=== PATIENT | male | born 1960 | race Caucasian/White ===

== ENCOUNTER 2019-07-01 19:56 | Emergency (ER) | payer OTHER ==
[2019-07-01 20:43] LABS: ABS Eosinophils 0.2 10^3/ul (0-0.6); ABS Lymphocytes 2.5 10^3/ul (1.0-4.8); ABS Monocytes 0.4 10^3/ul (0-0.8); ABS Neutrophils 2.7 10^3/ul (1.5-7.7); Hematocrit 44 % (42-52); Hemoglobin 15.3 g/dL (14.0-18.0); Lymphocyte % 43.1 %; Mean Corpuscular HGB Conc 35 g/dL (31-36); Mean Corpuscular Hemoglobin 29 pg (27-31); Mean Corpuscular Volume 84 fL (80-94); Mean Platelet Volume 8.6 fL (7.4-10.4); Platelet Count 188 10^3/uL (150-450); Red Blood Count 5.26 10^6 /uL (4.18-5.48); Red Cell Distribution Width 13 % (10-15); White Blood Count 5.7 10^3/uL (3.5-10.8)
[2019-07-01 20:48] LABS: INR 1.03 (0.82-1.09)
--- NOTE | 2019-07-01 20:55 | ED ---
HPI Chest Pain - HPI Summary HPI Summary: Pt is a 59 y/o M presenting to the ED for a chief complaint of chest pain that began 2-3 weeks ago. Pt contacted his PCP who told him to go to the ED. Pt rates the pain as 2/10 in severity and describes the pain as left-sided and aching. Pt denies nausea, SOB, diaphoresis, lightheadedness, or bilateral LE edema. Pt denies any aggravating or alleviated symptoms. Pt played tennis one day ago without aggravating the chest pain. Pt reports that he has an active lifestyle. Pt denies a PMHx of a heart murmur. Pt stopped smoking tobacco and drinking alcohol over 20 years ago. - History of Current Complaint Chief Complaint: EDChestPainROMI Time Seen by Provider: 07/01/19 20:16 Hx Obtained From: Patient Onset/Duration: Started Weeks Ago - 2-3 weeks ago, Atraumatic, Still Present Timing: Lasting Weeks - 2-3 weeks ago Initial Severity: Mild Current Severity: Mild Pain Intensity: 2 Pain Scale Used: 0-10 Numeric Chest Pain Location: Left Anterior Character: Other: - Aching Aggravating Factor(s): Nothing Alleviating Factor(s): Nothing Associated Signs and Symptoms: Positive: Chest Pain - Left-sided. Negative: Shortness of Breath, Lightheadedness, Diaphoresis, Nausea, Edema - Bilateral LE - Allergy/Home Medications Allergies/Adverse Reactions: Allergies Allergy/AdvReac Type Severity Reaction Status Date / Time Penicillins Allergy Unknown Verified 10/20/17 11:40 Reaction Details Home Medications: Home Medications Propranolol TAB* [Inderal TAB*] 10 - 40 mg PO DAILY PRN 07/01/19 [History Confirmed 07/01/19] Rosuvastatin (NF) [Crestor (NF)] 5 mg PO DAILY 07/01/19 [History Confirmed 07/01] Sildenafil Citrate 100 mg PO DAILY PRN 07/01/19 [History Confirmed 07/01/19] Temazepam 7.5 mg Cap (Nf) [Temazepam] 7.5 mg PO DAILY PRN 07/01/19 [History Confirmed 07/01/19] PMH/Surg Hx/FS Hx/Imm Hx Previously Healthy: Yes Cardiovascular History: Reports: Other Cardiovascular Problems/Disorders - Negative heart murmur Sensory History: Denies: Hx Legally Blind, Hx Deafness Opthamlomology History: Denies: Hx Legally Blind EENT History: Denies: Hx Deafness - Surgical History Surgical History: None Surgery Procedure, Year, and Place: None - Immunization History Immunizations Up to Date: Yes Infectious Disease History: No Infectious Disease History: Denies: Traveled Outside the [place] in Last 30 Days - Family History Known Family History: Negative: Hypertension, Diabetes - Social History Alcohol Use: None Hx Substance Use: No Substance Use Type: Reports: None Hx Tobacco Use: Yes Smoking Status (MU): Former Smoker Review of Systems Negative: Skin Diaphoresis Positive: Chest Pain - Left sided Negative: Shortness Of Breath Negative: Edema - Bilateral LE Neurological: Other - Negative lightheadedness All Other Systems Reviewed And Are Negative: Yes Physical Exam - Summary Physical Exam Summary: Appearance: The patient is well-nourished in no acute distress and in no acute pain. Skin: The skin is warm and dry, and skin color reflects adequate perfusion. HEENT: The head is normocephalic and atraumatic. The pupils are equal and reactive. The conjunctivae are clear and without drainage. Nares are patent and without drainage. Mouth reveals moist mucous membranes, and the throat is without erythema and exudate. The external ears are intact. The ear canals are patent and without drainage. The tympanic membranes are intact. Neck: The neck is supple with full range of motion and non-tender. There are no carotid bruits. There is no neck vein distension. Respiratory: Chest is non-tender. Lungs are clear to auscultation and breath sounds are symmetrical and equal. Cardiovascular: Heart is regular rate and rhythm. There is no rub auscultated. There is no peripheral edema and pulses are symmetrical and equal. There is a systolic ejection murmur. Abdomen: The abdomen is soft and non-tender. There are normal bowel sounds heard in all four quadrants and there is no organomegaly palpated. Musculoskeletal: There is no back tenderness noted. Extremities are non-tender with full range of motion. There is good capillary refill. There is no peripheral edema or calf tenderness elicited. Neurological: Patient is alert and oriented to person, place and time. The patient has symmetrical motor strength in all four extremities. Cranial nerves are grossly intact. Deep tendon reflexes are symmetrical and equal in all four extremities. Psychiatric: The patient has an appropriate affect and does not exhibit any anxiety or depression. Triage Information Reviewed: Yes Vital Signs On Initial Exam: Initial Vitals Temp Pulse Resp BP Pulse Ox 97.1 F 63 16 178/82 99 07/01/19 19:59 07/01/19 19:59 07/01/19 19:59 07/01/19 19:59 07/01/19 19:59 Vital Signs Reviewed: Yes Procedures - Sedation Patient Received Moderate/Deep Sedation with Procedure: No Diagnostics - Vital Signs Vital Signs Temp Pulse Resp BP Pulse Ox 07/01/19 19:59 97.1 F 63 16 178/82 99 - Laboratory Lab Results: Lab Results 07/01/19 07/01/19 Range/Units 20:33 20:34 WBC 5.7 (3.5-10.8) 10^3/uL RBC 5.26 (4.18-5.48) 10^6 /uL Hgb 15.3 (14.0-18.0) g/dL Hct 44 (42-52) % MCV 84 (80-94) fL MCH 29 (27-31) pg MCHC 35 (31-36) g/dL RDW 13 (10-15) % Plt Count 188 (150-450) 10^3/uL MPV 8.6 (7.4-10.4) fL Neut % (Auto) 46.7 % Lymph % (Auto) 43.1 % [place] % (Auto) 6.7 % Eos % (Auto) 3.0 % Baso % (Auto) 0.5 % Absolute Neuts (auto) 2.7 (1.5-7.7) 10^3/ul Absolute Lymphs (auto) 2.5 (1.0-4.8) 10^3/ul Absolute Monos (auto) 0.4 (0-0.8) 10^3/ul Absolute Eos (auto) 0.2 (0-0.6) 10^3/ul Absolute Basos (auto) 0.0 (0-0.2) 10^3/ul Absolute Nucleated RBC 0.0 10^3/ul Nucleated RBC % 0.0 INR (Anticoag Therapy) 1.03 (0.82-1.09) Result Diagrams: 07/01/19 20:34 07/01/19 20:33 Lab Statement: Any lab studies that have been ordered have been reviewed, and results considered in the medical decision making process. - EKG 19:58 Cardiac Rate: Bradycardia - 51 BPM EKG Rhythm: Sinus Bradycardia ST Segment: Normal Ectopy: None Summary of EKG Findings: EKG at 19:58 shows 51 BPM with sinus bradycardia, normal ST, no ectopy, no STEMI. Chest Pain Course/Dx - Course Course Of Treatment: Mr. Matson was nontoxic in appearance with stable vital signs on arrival. He was kept on monitor while labs were obtained. Initial EKG and troponin were unremarkable aside from some bradycardia. His Heart Score is 2 indicating low probability. At this point we're waiting for second troponin and I expect he should go home if that is not rising. - Diagnoses Provider Diagnoses: Chest pain Discharge ED - Sign-Out/Discharge Documenting (check all that apply): Sign-Out Patient Signing out patient TO: Shaka Yang Receiving patient FROM: Shaka Harris - Discharge Plan Condition: Stable Referrals: Leonard Hightower MD [Primary Care Provider] - - Billing Disposition and Condition Condition: STABLE - Attestation Statements Document Initiated by Elsie: Yes Documenting Scribe: Yolanda Schafer Provider For Whom Scribe is Documenting (Include Credential): Shaka Harris MD Scribe Attestation: IYolanda, scribed for Shaka Harris MD on 07/01/19 at 2122. Scribe Documentation Reviewed: Yes Provider Attestation: The documentation as recorded by the Yolanda kowalski accurately reflects the service I personally performed and the decisions made by me, Shaka Harris MD Status of Scribe Document: Viewed
[2019-07-01 21:00] LABS: Albumin 4.3 g/dL (3.2-5.2); BUN/Creatinine Ratio 18.8 (8-20); Calcium 9.4 mg/dL (8.6-10.3); EGFR African American 92.1 (>60); EGFR Non-African American 76.1 (>60); Globulin 2.2 g/dL (2-4); Potassium 3.7 mmol/L (3.5-5.0); Total Bilirubin 0.6 mg/dL (0.2-1.0); Total Protein 6.5 g/dL (6.4-8.9)
[2019-07-01 21:02] LABS: Troponin I 0.01 ng/mL (<0.04)
--- NOTE | 2019-07-01 21:54 | ED ---
Progress - Progress Note Progress Note: The patient is signed out from Dr. Harris upon shift change on 07/01/19 at 22:00 awaiting second troponin level and pending disposition. Course/Dx - Course Course Of Treatment: 59 y/o M signed out from Dr. Harris upon shift change on awaiting second troponin level and pending disposition. Troponin II is 0.02. Patient will be discharged home with follow up from his primary care provider in 1 week. Patient was instructed to return to Emergency Department for new or worsening symptoms. Patient understands and is agreeable to this plan. - Diagnoses Provider Diagnoses: Chest pain Discharge ED - Sign-Out/Discharge Documenting (check all that apply): Patient Departure - Discharge - Discharge Plan Condition: Stable Disposition: HOME Patient Education Materials: Chest Pain (ED) Referrals: Leonard Highotwer MD [Primary Care Provider] - 1 Week - Billing Disposition and Condition Condition: STABLE Disposition: Home - Attestation Statements Document Initiated by Elsie: Yes Documenting Scribe: Nakita Warren Provider For Whom Miky is Documenting (Include Credential): Shaka Yang MD Scribe Attestation: Nakita Acosta, scribed for Shaka Yang MD on 07/03/19 at 1915. Scribe Documentation Reviewed: Yes Provider Attestation: The documentation as recorded by the Nakita kowalski accurately reflects the service I personally performed and the decisions made by Shaka russell MD Status of Scribe Document: Viewed Procedures - Sedation Patient Received Moderate/Deep Sedation with Procedure: No
[2019-07-02 00:21] VITALS: BP 128/72
== END 2019-07-02 00:24 | disposition home or self-care (01) ==
LOC: ED 19:56
DX: R07.9 Chest pain, unspecified (principal); Z88.0 Allergy status to penicillin; Z79.899 Other long term (current) drug therapy; Z87.891 Personal history of nicotine dependence; Z86.79 Personal history of other diseases of the circulatory system
CPT/HCPCS: 36415; 80053; 84484; 85025; 85610; 93005; 99283